=== PATIENT | male | born 1975 | race Caucasian/White ===

== ENCOUNTER 2020-12-21 15:57 | Emergency (ER) | payer SELFPAY ==
[2020-12-22 18:40] LABS: SARS-CoV-2 PCR by NAA DETECTED (NotDetected)
== END 2020-12-21 19:31 | disposition home or self-care (01) ==
LOC: CSHERS 15:57
DX: U07.1 COVID-19 (principal); I10 Essential (primary) hypertension; E78.5 Hyperlipidemia, unspecified; F17.200 Nicotine dependence, unspecified, uncomplicated; Z79.82 Long term (current) use of aspirin
CPT/HCPCS: 71045; U0003; U0005